=== PATIENT | male | born 1950 | race Caucasian/White ===

== ENCOUNTER 2022-08-23 07:18 | Outpatient (CLI) | payer MEDICARE, BC ==
[2022-08-23] MEDS ORDERED: Iopamidol 370 76% 100 ML VIAL ONE (09:48)
== END 2022-08-23 07:19 | disposition home or self-care (01) ==
LOC: CT 07:18
PROVIDERS: ATTEND Urology
DX: R31.9 Hematuria, unspecified (principal); N20.0 Calculus of kidney; K80.20 Calculus of gallbladder without cholecystitis without obstruction
CPT/HCPCS: 74178; Q9967

== ENCOUNTER 2022-12-02 14:02 | Outpatient (CLI) | payer BC, MEDICARE | END 2022-12-02 14:03 | disposition home or self-care (01) | LOC: BICULT 14:02 | PROVIDERS: ATTEND Family Medicine | DX: R09.89 Other specified symptoms and signs involving the circulatory and respiratory systems (principal) | CPT/HCPCS: 93923 ==

== ENCOUNTER 2025-01-07 11:22 | Inpatient (IN) | payer BC, MEDICARE ==
[2025-01-07] MEDS ORDERED: Iopamidol-370 76% 500 ML MDV (1 ML CHARGE) ONE (11:44)
[2025-01-07 11:55] LABS: #Basophils 0.04 10x3/uL (0.0-0.2); %Basophils 0.4 % (0.0-1.0); %Eosinophils 1.7 % (0.0-10.0); %Lymphocytes 39.2 % (21.0-51.0); %Monocytes 8.3 % (0.0-10.0); %Neutrophils 50.2 % (42.0-75.0); Hematocrit 38.6 % (42.0-52.0); Hemoglobin 13.7 g/dL (14.0-18.0); Mean Corpuscular HGB CONC 35.5 g/dL (32.0-36.0); Mean Corpuscular Volume 90.2 fL (78.0-98.0); Mean Platelet Volume 9.6 fL (7.4-10.4); Platelet Count 184 10x3/uL (130-400); RBC Distribution Width 12.5 % (11.5-14.5); Red Blood Cell (RBC) Count 4.28 mill/uL (4.70-6.10)
[2025-01-07] MEDS ORDERED: PHENYLEPHRINE-NS 100 MCG/ML 10 ML SYRINGE ONE ×2 (11:55→15:47)
[2025-01-07] MEDS ORDERED: Bupivacaine PF 0.5% 30 ML VIAL ONE (11:55)
[2025-01-07] MEDS ORDERED: Albumin 5% 500 ML ONE (11:55)
[2025-01-07] MEDS ORDERED: Dexamethasone 4 mg/ml Vial ONE (11:55)
[2025-01-07] MEDS ORDERED: EPINEPHrine 1 MG/ML VIAL ONE ×2 (11:55→12:15)
[2025-01-07 12:09] LABS: ALT (SGPT) 28 U/L (Less than 45); AST (SGOT) 32 U/L (11-34); Albumin 4.1 g/dL (3.1-4.5); Alkaline Phosphatase 48 U/L (40-110); Anion Gap 12 mmol/L (10-20); BUN (Urea Nitrogen) 14 mg/dL (8.4-25.7); Bilirubin, Total 0.9 mg/dL (0.3-1.2); Calc. Creatinine Clearance 0 mL/min (70-130); Calcium 8.8 mg/dL (7.8-10.44); Carbon Dioxide 25 mmol/L (23-31); Chloride 107 mmol/L (98-107); Estimated GFR 93; Globulin 2.8 g/dL (2.4-3.5); Glucose 110 mg/dL (83-110); Lipase 19 U/L (8-78); Potassium 3.8 mmol/L (3.5-5.1); Protein, Total 6.9 g/dL (5.8-8.1); Sodium 140 mmol/L (136-145)
[2025-01-07 12:14] LABS: Troponin I 0.013 ng/mL (< 0.028)
[2025-01-07] MEDS ORDERED: Heparin 10,000 UNITS/1 ML VIAL 30,000 UNITS in Sodium Chloride 0.9% 1,000 ML FS SCH (12:15)
[2025-01-07] MEDS ORDERED: ePHEDrine Sulfate 50 MG/10 ML VIAL ONE (12:15)
[2025-01-07] MEDS ORDERED: Heparin 25,000 units/D5W 500 ML ONE (12:22)
[2025-01-07] MEDS ORDERED: Midazolam HCl 2 mg/2 ml Vial ONE ×3 (12:24→15:56)
[2025-01-07] MEDS ORDERED: Fentanyl 250 MCG/5 ML VIAL ONE ×2 (12:24→13:27)
[2025-01-07] MEDS ORDERED: Lidocaine 2% PF 100 mg/5 ml Syringe ONE (12:50)
[2025-01-07] MEDS ORDERED: Heparin 5,000 UNITS/ML VIAL ONE (12:50)
[2025-01-07] MEDS ORDERED: Sodium Bicarb 50 mEq/50 ML VIAL ONE (12:50)
[2025-01-07] MEDS ORDERED: Papaverine 60 MG/2 ML VIAL ONE (12:50)
[2025-01-07] MEDS ORDERED: Vancomycin 1 GM VIAL ONE (12:50)
[2025-01-07] MEDS ORDERED: Protamine Sulfate 250 MG/25 ML VIAL ONE (12:50)
[2025-01-07] MEDS ORDERED: Cardioplegic Soln 1,000 ML BAG ONE (12:50)
[2025-01-07] MEDS ORDERED: Heparin 30,000 units/30 ml VIAL ONE (12:50)
[2025-01-07] MEDS ORDERED: Nitroglycerin 50 MG/250 ML BOT ONE (12:50)
[2025-01-07] MEDS ORDERED: Mannitol 12.5 GM/50 ML ONE (12:50)
[2025-01-07] MEDS ORDERED: Potassium Chloride 60 mEq (30 mL) VIAL ONE (12:50)
[2025-01-07] MEDS ORDERED: Aminocaproic Acid 5 GM/20 ML VIAL ONE (12:50)
[2025-01-07] MEDS ORDERED: Magnesium 5 GM/10 ML VIAL ONE (12:50)
[2025-01-07] MEDS ORDERED: CEFAZOLIN 1 GM VIAL ONE (13:09)
[2025-01-07] MEDS ORDERED: PROPOFOL 20 ML ONE (13:27)
[2025-01-07] MEDS ORDERED: Rocuronium Bromide 10 MG/ML (10ML VIAL) ONE (13:37)
[2025-01-07] MEDS ORDERED: niCARdipine 25 MG/10 ML SDV ONE (14:16)
[2025-01-07] MEDS ORDERED: Promethazine HCl 25 MG/ML VIAL IM PRN (16:02)
[2025-01-07] MEDS ORDERED: Guaifenesin DM 100-10/5 ML UDCUP PO PRN (16:02)
[2025-01-07] MEDS ORDERED: NOREPINEPHRINE 8 MG/250 ML-D5W 250 ML IVPB PRN (16:02)
[2025-01-07] MEDS ORDERED: Bisacodyl 5 MG TAB PO PRN (16:02)
[2025-01-07] MEDS ORDERED: Bisacodyl 10 MG SUPP PR PRN (16:02)
[2025-01-07] MEDS ORDERED: hydrALAZINE 20 MG/ML VIAL SLOW IVP PRN (16:02)
[2025-01-07] MEDS ORDERED: Mag-Al 1200 mg/1200 mg/30 ML UDCUP PO PRN (16:02)
[2025-01-07] MEDS ORDERED: Albumin 5% 12.5 GM (250 mL) BOT IVPB PRN ×2 (16:02)
[2025-01-07] MEDS ORDERED: Ipratropium/Albuterol 3 ML NEB NEB PRN (16:02)
[2025-01-07] MEDS ORDERED: Dextrose 5% in Water 1,000 ML IV PRN (16:15)
[2025-01-07] MEDS ORDERED: INSULIN REGULAR IN 0.9 % NACL 100 UNITS in Premix 1 BAG IVPB SCH (16:15)
[2025-01-07] MEDS ORDERED: Dextrose 50% Abboject 50 ML SYRINGE SLOW IVP PRN (16:15)
[2025-01-07] MEDS ORDERED: Glucagon 1 MG/ML KIT SC PRN (16:15)
[2025-01-07 16:16] LABS: Actual Bicarbonate (HCO3a) 18.4 mEq/L (22-28); Base Excess (BEa) -6.1 mEq/L (-2.0 to +3.0); CO2 Tension 33.2 mmHg (35.0-45.0); Calcium, Ionized (arterial) 1.02 mmol/L (1.12-1.30); Carboxyhemoglobin (COHb) 0.5 gm% (0.0-3.0); Hematocrit-ABG 36 % (42.0-52.0); Hemoglobin (Hb) 12.2 g/dL (14.0-18.0); O2 Tension (PaO2), arterial 157.7 mmHg (> 70.0); Potassium - ABG Lab 3.29 mmol/L (3.70-5.30); pH, Arterial 7.362 (7.35-7.45)
[2025-01-07 16:17] LABS: Puncture Site Arterial Line
[2025-01-07] MEDS: Insulin Regular, Human 100 UNIT/ML 10 ML VIAL SC PRN (16:20)
[2025-01-07] MEDS ORDERED: niCARdipine 25 MG in Sodium Chloride 0.9% 250 ML 250 ML IVPB SCH (16:30)
[2025-01-07 16:50] LABS: #Basophils 0.04 10x3/uL (0.0-0.2); %Basophils 0.3 % (0.0-1.0); %Eosinophils 0.8 % (0.0-10.0); %Lymphocytes 22.4 % (21.0-51.0); %Monocytes 1.5 % (0.0-10.0); %Neutrophils 72.7 % (42.0-75.0); Hematocrit 33.7 % (42.0-52.0); Hemoglobin 11.9 g/dL (14.0-18.0); Mean Corpuscular HGB CONC 35.3 g/dL (32.0-36.0); Mean Corpuscular Hemoglobin 32.2 pg (27.0-31.0); Mean Corpuscular Volume 91.1 fL (78.0-98.0); Mean Platelet Volume 9.9 fL (7.4-10.4); Platelet Count 128 10x3/uL (130-400); RBC Distribution Width 12.6 % (11.5-14.5)
[2025-01-07] MEDS: Morphine 2 MG/ML VIAL SLOW IVP PRN (17:03)
[2025-01-07 17:07] LABS: PTT 31.2 sec (22.9-36.1)
[2025-01-07] MEDS: Sodium Chloride 0.9% 1,000 ML IV SCH (17:08)
[2025-01-07 17:21] LABS: Anion Gap 15 mmol/L (10-20); BUN (Urea Nitrogen) 11 mg/dL (8.4-25.7); Calc. Creatinine Clearance 97 mL/min (70-130); Calcium 7.2 mg/dL (7.8-10.44); Carbon Dioxide 20 mmol/L (23-31); Chloride 111 mmol/L (98-107); Estimated GFR 95; Glucose 153 mg/dL (83-110); INR-International Normal Ratio 1.5; Potassium 3.3 mmol/L (3.5-5.1); Prothrombin Time 17.7 sec (12.0-14.7); Sodium 143 mmol/L (136-145)
[2025-01-07] MEDS: Potassium Chloride 20 MEQ (100 mL) BAG IVPB PRN (17:42)
[2025-01-07] MEDS: Nitroglycerin 50 MG/250 ML BOT 250 ML IVPB SCH (18:15)
[2025-01-07] MEDS: Ketorolac Tromethamine 30 MG (1 mL) VIAL IVP SCH (18:16)
[2025-01-07] MEDS: Aspirin Chewable 81 MG TAB PO SCH (18:26)
[2025-01-07] MEDS: Post-Op Insulin Drip Protocol IVPB ONE (18:26)
[2025-01-07] MEDS: Acetaminophen 325 MG TAB PO SCH ×2 (18:26→18:35)
[2025-01-07] MEDS: Ondansetron PF 4 MG/2 ML Vial IVP PRN (18:50)
[2025-01-07] MEDS: Nitroglycerin 50 MG/250 ML BOT 250 ML ONE (19:08)
[2025-01-07 19:20] LABS: CO2 Tension 35.9 mmHg (35.0-45.0); Calcium, Ionized (arterial) 0.99 mmol/L (1.12-1.30); Carboxyhemoglobin (COHb) 0.4 gm% (0.0-3.0); Hematocrit-ABG 39 % (42.0-52.0); Hemoglobin (Hb) 13.1 g/dL (14.0-18.0); O2 Tension (PaO2), arterial 128.7 mmHg (> 70.0); Potassium - ABG Lab 3.59 mmol/L (3.70-5.30); pH, Arterial 7.342 (7.35-7.45)
[2025-01-07 19:23] LABS: ALV-art Gradient 111.625 mmHg (0-20); Puncture Site Arterial Line
[2025-01-07 20:52] LABS: Hematocrit 32.8 % (42.0-52.0); Hemoglobin 11.6 g/dL (14.0-18.0)
[2025-01-07 21:07] LABS: Potassium 3.5 mmol/L (3.5-5.1)
[2025-01-07] MEDS: CEFAZOLIN 2 GM in Sodium Chloride 0.9% 100 ML IVPB SCH (21:11)
[2025-01-07] MEDS: Atorvastatin Calcium 40 MG TAB PO SCH (21:11)
[2025-01-07] MEDS: Famotidine/PF 20 mg/2ml Vial SLOW IVP SCH (21:12)
[2025-01-07] MEDS: HYDROcodone/Acetaminophen 5/325 mg Tablet PO PRN (21:51)
[2025-01-08 04:45] LABS: #Basophils Less than 0.03 10x3/uL (0.0-0.2); #Eosinophils Less than 0.03 10x3/uL (0.0-0.7); %Basophils 0.1 % (0.0-1.0); %Lymphocytes 6.5 % (21.0-51.0); %Monocytes 8.4 % (0.0-10.0); %Neutrophils 84.5 % (42.0-75.0); Hematocrit 33.2 % (42.0-52.0); Hemoglobin 11.9 g/dL (14.0-18.0); Mean Corpuscular HGB CONC 35.8 g/dL (32.0-36.0); Mean Corpuscular Hemoglobin 32.4 pg (27.0-31.0); Mean Corpuscular Volume 90.5 fL (78.0-98.0); Mean Platelet Volume 9.5 fL (7.4-10.4); Platelet Count 144 10x3/uL (130-400); RBC Distribution Width 12.6 % (11.5-14.5); Red Blood Cell (RBC) Count 3.67 mill/uL (4.70-6.10)
[2025-01-08 05:01] LABS: Anion Gap 12 mmol/L (10-20); BUN (Urea Nitrogen) 11 mg/dL (8.4-25.7); Calc. Creatinine Clearance 83 mL/min (70-130); Calcium 7.8 mg/dL (7.8-10.44); Carbon Dioxide 24 mmol/L (23-31); Chloride 110 mmol/L (98-107); Estimated GFR 91; Glucose 118 mg/dL (83-110); Potassium 4.1 mmol/L (3.5-5.1); Sodium 142 mmol/L (136-145)
[2025-01-08] MEDS: Aspirin 325 MG TAB PO SCH (08:57)
[2025-01-08] MEDS ORDERED: traMADol HCl 50 MG TAB PO PRN (09:04)
[2025-01-08] MEDS: HYDROcodone/Acetaminophen 5/325 mg Tablet PO PRN (15:13)
[2025-01-08] MEDS: Gabapentin 100 MG CAP PO SCH (15:14)
[2025-01-08] MEDS ORDERED: Insulin Glargine 30 UNITS/0.3 ML VIAL SC PRN (16:19)
[2025-01-08] MEDS: Docusate 100 MG CAP PO SCH (21:51)
[2025-01-08] MEDS: Metoprolol Tartrate 25 MG TAB PO SCH (21:52)
[2025-01-08] MEDS: Thiamine 100 MG TAB PO SCH (21:52)
[2025-01-08] MEDS: Folic Acid 1 MG TAB PO SCH (21:52)
[2025-01-08] MEDS: Multivit, Therapeutic 1 TAB PO SCH (21:55)
[2025-01-09 04:29] LABS: #Basophils 0.04 10x3/uL (0.0-0.2); %Basophils 0.2 % (0.0-1.0); %Eosinophils 0.4 % (0.0-10.0); %Monocytes 9.8 % (0.0-10.0); %Neutrophils 70.6 % (42.0-75.0); Hematocrit 31.9 % (42.0-52.0); Hemoglobin 10.9 g/dL (14.0-18.0); Mean Corpuscular HGB CONC 34.2 g/dL (32.0-36.0); Mean Corpuscular Hemoglobin 32.3 pg (27.0-31.0); Mean Corpuscular Volume 94.7 fL (78.0-98.0); Mean Platelet Volume 10.2 fL (7.4-10.4); Platelet Count 135 10x3/uL (130-400); RBC Distribution Width 13.2 % (11.5-14.5); Red Blood Cell (RBC) Count 3.37 mill/uL (4.70-6.10)
[2025-01-09 04:47] LABS: Anion Gap 10 mmol/L (10-20); BUN (Urea Nitrogen) 16 mg/dL (8.4-25.7); Calc. Creatinine Clearance 75 mL/min (70-130); Calcium 8.3 mg/dL (7.8-10.44); Carbon Dioxide 26 mmol/L (23-31); Chloride 109 mmol/L (98-107); Estimated GFR 83; Glucose 116 mg/dL (83-110); Potassium 4.1 mmol/L (3.5-5.1); Sodium 141 mmol/L (136-145)
[2025-01-09 06:30] VITALS: BMI 31.2
[2025-01-09] MEDS: Pantoprazole 40 MG DR.TAB PO SCH (08:08)
[2025-01-09] MEDS: Furosemide 20 MG TAB PO SCH (08:08)
[2025-01-09 09:07] LABS: Cardiac Risk 1.9 (Less than 4.5)
[2025-01-09] MEDS ORDERED: Milk Of Magnesia 30 ML UDCUP PO PRN (17:14)
[2025-01-10 03:59] LABS: #Basophils 0.05 10x3/uL (0.0-0.2); %Basophils 0.3 % (0.0-1.0); %Lymphocytes 17.9 % (21.0-51.0); %Monocytes 10.6 % (0.0-10.0); %Neutrophils 69.6 % (42.0-75.0); Hematocrit 30.3 % (42.0-52.0); Hemoglobin 10.1 g/dL (14.0-18.0); Mean Corpuscular HGB CONC 33.3 g/dL (32.0-36.0); Mean Corpuscular Hemoglobin 32.1 pg (27.0-31.0); Mean Corpuscular Volume 96.2 fL (78.0-98.0); Mean Platelet Volume 10.4 fL (7.4-10.4); Platelet Count 129 10x3/uL (130-400); RBC Distribution Width 13.3 % (11.5-14.5); Red Blood Cell (RBC) Count 3.15 mill/uL (4.70-6.10)
[2025-01-10 04:26] LABS: Anion Gap 11 mmol/L (10-20); BUN (Urea Nitrogen) 15 mg/dL (8.4-25.7); Calc. Creatinine Clearance 84 mL/min (70-130); Calcium 8.4 mg/dL (7.8-10.44); Carbon Dioxide 26 mmol/L (23-31); Chloride 108 mmol/L (98-107); Estimated GFR 91; Glucose 115 mg/dL (83-110); Potassium 3.8 mmol/L (3.5-5.1); Sodium 141 mmol/L (136-145)
[2025-01-10] MEDS: Furosemide 40 MG (4 mL) VIAL SLOW IVP SCH (08:50)
[2025-01-10 16:52] VITALS: BP 139/79; TEMP 97.7
[2025-01-11] MEDS ORDERED: Losartan 25 MG TAB PO SCH (09:00)
== END 2025-01-10 16:20 | disposition home or self-care (01) | DRG 236 ==
LOC: ERS 11:22 → CCL 12:32 → CCU 14:50 → PCU 01-08 11:26
PROVIDERS: ADMIT Internal Medicine Cardiovascular Disease; ATTEND Internal Medicine Critical Care Medicine
PROC: 021009W Bypass Coronary Artery, One Artery from Aorta with Autologous Venous Tissue, Open Approach (ICD-10-PCS; principal; 2025-01-07)
PROC: 06BQ4ZZ Excision of Left Saphenous Vein, Percutaneous Endoscopic Approach (ICD-10-PCS; 2025-01-07)
PROC: 5A1221Z Performance of Cardiac Output, Continuous (ICD-10-PCS; 2025-01-07)
PROC: 02L70CK Occlusion of Left Atrial Appendage with Extraluminal Device, Open Approach (ICD-10-PCS; 2025-01-07)
PROC: 3E080GC Introduction of Other Therapeutic Substance into Heart, Open Approach (ICD-10-PCS; 2025-01-07)
PROC: 3E033XZ Introduction of Vasopressor into Peripheral Vein, Percutaneous Approach (ICD-10-PCS; 2025-01-07)
PROC: 30233J1 Transfusion of Nonautologous Serum Albumin into Peripheral Vein, Percutaneous Approach (ICD-10-PCS; 2025-01-07)
DX: I25.110 Atherosclerotic heart disease of native coronary artery with unstable angina pectoris (principal); D64.89 Other specified anemias; E78.5 Hyperlipidemia, unspecified; N40.0 Benign prostatic hyperplasia without lower urinary tract symptoms; E11.42 Type 2 diabetes mellitus with diabetic polyneuropathy; K21.9 Gastro-esophageal reflux disease without esophagitis; R53.1 Weakness; F17.210 Nicotine dependence, cigarettes, uncomplicated; Z79.82 Long term (current) use of aspirin; Z79.899 Other long term (current) drug therapy; Z88.8 Allergy status to other drugs, medicaments and biological substances
CPT/HCPCS: 36415; 36416; 70496; 70498; 71045; 80048; 80053; 80061; 82805; 83036; 83690; 83735; 83880; 84484; 85025; 85610; 85730; 93005; 93010; 93798; 94002; 94150; 96374; A4311; A4648; C1751; J0171; J0665; J0690; J1100; J1643; J1644; J1815; J1885; J1940; J2003; J2150; J2250; J2272; J2405; J2440; J2704; J2720; J3010; J3370; J3475; J3480; J3490; J7030; P9045; Q9967; S0017